=== PATIENT | female | born 1960 | race Caucasian/White ===

== ENCOUNTER → 2016-10-04 | Outpatient (CLI) | payer BC ==
[~2016-10-04] MED LIST: ADVIN25/60 INH; ALBU1AER9 INH; ALBU1NEB10 INH; BRVIN INH; LVQ750 PO; MELO15TA4 PO; MOME50SP5; PRD10 PO; PRLSR20 PO; RANI150T2 PO; SNG10 PO
--- NOTE | 2016-10-05 13:35 | MAMMOGRAPHY REPORT ---
BILATERAL DIGITAL SCREENING MAMMOGRAM TOMOSYNTHESIS WITH CAD: 10/04/2016 TECHNIQUE: Breast tomosynthesis in addition to standard 2D mammography was performed. Current study was also evaluated with a Computer Aided Detection (CAD) system. COMPARISON: Comparison is made to exams dated: 09/17/2015 mammogram, 09/11/2013 mammogram, 09/09/2012 ma mmogram, 09/08/2011 mammogram, 09/05/2010 mammogram, and 09/14/2014 mammogram - [facility]. BREAST COMPOSITION: There are scattered areas of fibroglandular density in both breasts. FINDINGS: No suspicious masses, calcifications, or areas of architectural distortion are noted in e ither breast. There has been no significant interval change compared to prior exams. Focal asymmetr y in the left subareolar breast is stable compared to prior exams dating back to at least 2007. Rig ht superior posterior breast asymmetry is also stable dating back to 2007. IMPRESSION: ACR BI-RADS CATEGORY 2: BENIGN There is no mammographic evidence of malignancy. A 1 year screening mammogram is recommended. The p atient will receive written notification of the results. Approximately 10% of breast cancers are not detected with mammography. A negative mammographic repor t should not delay biopsy if a clinically suggestive mass is present. Jaclyn Vu M.D. /:10/04/2016 16:41:03 Edge Grinder Machine: Anya LOBATO(R)(M), [facility] letter sent: Normal 1/2 BI-RADS Code: ACR BI-RADS Category 2: Benign
== END | disposition home or self-care (01) ==
LOC: C.MAMM 12:16
PROVIDERS: ATTEND Surgery
DX: Z12.31 Encounter for screening mammogram for malignant neoplasm of breast (principal)

== ENCOUNTER → 2017-10-05 | Outpatient (CLI) | payer OTHER ==
[~2017-10-05] MED LIST changes: +MELO-84 PO; -MELO15TA4 PO
--- NOTE | 2017-10-08 07:33 | MAMMOGRAPHY REPORT ---
BILATERAL DIGITAL SCREENING MAMMOGRAM TOMOSYNTHESIS WITH CAD: 10/05/2017 CLINICAL HISTORY: Routine screening. Patient has no complaints. TECHNIQUE: Breast tomosynthesis in addition to standard 2D mammography was performed. Current study was also evaluated with a Computer Aided Detection (CAD) system. COMPARISON: Comparison is made to exams dated: 10/04/2016 mammogram, 09/17/2015 mammogram, 09/14/2014 ma mmogram, 09/11/2013 mammogram, 09/09/2012 mammogram, and 09/08/2011 mammogram - [facility] BREAST COMPOSITION: There are scattered areas of fibroglandular density in both breasts. FINDINGS: No suspicious masses, calcifications, or areas of architectural distortion are noted in ei ther breast. There has been no significant interval change compared to prior exams. IMPRESSION: ACR BI-RADS CATEGORY 1: NEGATIVE There is no mammographic evidence of malignancy. A 1 year screening mammogram is recommended. The pa tient will receive written notification of the results. Approximately 10% of breast cancers are not detected with mammography. A negative mammographic report should not delay biopsy if a clinically suggestive mass is present. Jaclyn Vu M.D. ah/:10/05/2017 16:08:24 Die Set Up Worker: Narcisa Viera M, [facility] letter sent: Normal 1/2 BI-RADS Code: ACR BI-RADS Category 1: Negative
== END | disposition home or self-care (01) ==
LOC: C.MAMM 12:37
PROVIDERS: ATTEND Internal Medicine
DX: Z12.31 Encounter for screening mammogram for malignant neoplasm of breast (principal)

== ENCOUNTER 2023-02-21 22:20 | Observation (INO) ==
[2023-02-21 23:10] LABS: Base Excess VBG -0.8 mEq/L; HCO3 VBG 24 mmol/L; Oxygen Saturation VBG 74.7 %; PCO2 VBG 41 mmHg (38-50); PO2 VBG 44 mmHg; pH VBG 7.38 (7.36-7.41)
[2023-02-21 23:14] LABS: Basophils # (auto) 0.07 K/uL (0-0.2); Basophils % (auto) 0.6 %; Eosinophils # (auto) 0.39 K/uL (0-0.50); Eosinophils % (auto) 3.4 %; Hematocrit (blood only) 41.3 % (37.0-47.0); Hemoglobin 14.4 g/dl (12.0-16.0); Immature Granulocytes # (auto) 0.04 K/uL (0.01-0.20); Immature Granulocytes % (auto) 0.3 %; Lymphocytes # (auto) 1.22 K/uL (1.2-3.4); Lymphocytes % (auto) 10.5 %; Mean Corpuscular Hemoglobin 30.1 pg (25.0-34.0); Mean Corpuscular Hgb Conc 34.9 g/dL (32.0-36.0); Mean Corpuscular Volume 86.2 fL (80.0-100.0); Mean Platelet Volume 9.3 fL (9.4-12.4); Monocytes # (auto) 0.61 K/uL (0.11-0.59); Monocytes % (auto) 5.3 %; Neutrophils # (auto) 9.28 K/uL (1.40-6.50); Neutrophils % (auto) 79.9 %; Platelet Count 278 K/uL (130-400); RDW Coefficient of Variation 12.6 % (11.5-14.5); RDW Standard Deviation 39.5 fL (36.4-46.3); Red Blood Count 4.79 M/uL (4.20-5.40); White Blood Count 11.61 K/ul (4.8-10.8)
[2023-02-21] MEDS ORDERED: ALBUT/IPRATROP 3MG/0.5MG NEB 3 ML VIAL NEB STA (23:19)
[2023-02-21] MEDS ORDERED: ALBUT/IPRATROP 3MG/0.5MG NEB 3 ML VIAL NEB ONE (23:24)
[2023-02-21] MEDS ORDERED: methylPREDNISolone 125 MG/2 ML VIAL IV STA (23:24)
[2023-02-21] MEDS ORDERED: MAGNESIUM SULFATE / D5W 1 GM/100 ML BAG IV STA (23:24)
[2023-02-21 23:33] LABS: Albumin Globulin Ratio 1.5 (0.9-2); Albumin Level 4.5 gm/dl (3.4-5.0); BUN Creatinine Ratio 18.3 (10-20); Bilirubin,Total 0.6 mg/dl (0.2-1.0); Calcium 9.5 mg/dl (8.6-10.3); Creatinine Clr Calc Pharmacy 71.3 ml/min; Est GFR (African American) 75.8 ml/min; Est GFR (Non-African American) 65.4 ml/min; Globulin 3.1 gm/dl (2.5-4.0); Magnesium 2.1 mg/dl (1.7-2.4); Potassium 3.7 mmol/L (3.5-5.1); Total Protein 7.6 gm/dl (6.0-8.3)
[2023-02-21 23:40] LABS: Troponin I High Sensitivity 3.3 pg/ml (0-14)
--- NOTE | 2023-02-21 23:50 | Emergency Department Note ---
Impression & Plan Acute dyspnea, Asthma exacerbation ED Provider Note ED Provider Note NAME: LATASHA NUNEZ AGE:62 SEX: Female : 1960 ARRIVES VIA: Private vehicle INFORMANT: Patient ED PROVIDER(s): Gayatri Sotelo DO CHIEF COMPLAINT: Shortness of breath HPI: This is a 62-year-old female presents emergency room due to increased difficulty breathing and concern for asthma exacerbation. Patient states she has had "a cold" intermittently over the course of the last month. She does deal with seasonal allergies but takes Singulair and Lexie. She states her asthma has been well controlled over the last several years. She states today her breathing seem to worsen and she used her albuterol MDI at home several times and then gave herself a nebulizer treatment between 7 and 730 without any significant improvement and presented for additional evaluation. She states she does feel tight in the chest and is sore with fits of coughing. She denies fevers or chills, nasal congestion, rhinorrhea, nausea, vomiting, diarrhea, or leg swelling. She denies any history of heart problems. PAST MEDICAL HISTORY:See Below PAST SURGICAL HISTORY:See Below FAMILY HISTORY:See Below SOCIAL HISTORY:See Below HOME MEDICATIONS:See Below ALLERGIES:See Below VITALS:See Below PHYSICAL EXAMINATION: GENERAL: alert, uncomfortable appearing, well nourished, no distress, non-toxic EYE EXAM: normal conjunctiva, PERRL and EOM's grossly intact OROPHARYNX: no exudate, no erythema, lips, buccal mucosa, and tongue normal and mucous membranes are moist NECK: supple, no nuchal rigidity, no adenopathy, non-tender LUNGS: Normal chest wall mechanics, diffuse bilateral expiratory wheezes noted, tachypnea, increased work of breathing HEART: no murmurs, S1 normal and S2 normal ABDOMEN: abdomen soft, non-tender, normo-active bowel sounds, no masses, no rebound or guarding. BACK: Back is symmetrical on inspection and there is no deformity, no midline tenderness, no CVA tenderness. SKIN: no rashes, petechiae, orbruising UPPER EXTREMITIES: upper extremities are grossly normal. FROM, nml pulses b/l. LOWER EXTREMITIES: No pitting edema. FROM, nml pulses b/l. NEURO EXAM: Normal sensorium, cranial nerves II-XII grossly intact, normal speech, no facial droop,nogross weakness of arms, no gross weakness of legs. G ross sensation intact. No ataxia. Vital Signs: reviewed and remarkable Differential Diagnosis: pneumonia, bronchitis, Asthma exacerbation, pneumothorax, pulmonary embolism, congestive heart failure, acute coronary syndrome, pericardial effusion, pleural effusion, foreign body, aspiration MEDICAL DECISION MAKING: This is a 62-year-old female with a history of asthma who presents with significant work of breathing and respiratory distress. Patient did try her MDI as well as a nebulizer treatment at home without any improvement. She was markedly dyspneic and uncomfortable appearing on arrival. She was afebrile and vital signs otherwise stable. Labs are drawn and sent, IV established, EKG and chest x-ray performed at bedside and interpreted by me and patient monitored on telemetry. Nursing staff is started a DuoNeb on the patient. I added a continuous nebulizer treatment, IV magnesium, and IV Solu-Medrol. Patient was given gentle IV fluid rehydration additionally. Patient reexamined multiple times and wheezing improved as did work of breathing. Patient still had increased dyspnea with exertion and was noted to be hypoxic with any exertion. Due to concern for persistent symptoms despite extensive treatment here, we discussed additional inpatient evaluation and management. A second continuous nebulizer treatment was also added. Chest x-ray did not reveal any acute findings however given recent URI symptoms over the course of the last month, we did discuss possible atypical presentation of pneumonia. Patient was given IV antibiotics as a precaution. Nasal swab had been negative for viral etiology. At this time I do not suspect occult PE or other cardiac etiology of her symptoms. Consultation(s): 0249: Discussed with Dr. Jaffe, hospitalist team for additional evaluation and management. ER Treatment Provided: See below 0115: Patient reevaluated while on continuous nebulizer treatment. She states she is feeling improved, she does have improved air movement on repeat auscultation although still has wheezes and scattered rhonchi. 0235: Patient still with expiratory wheeze bilaterally although markedly improved compared to prior. Patient noted to still be dyspneic and hypoxic with ambulation. Requires 2 L while at rest to maintain sats in the low 90s. Diagnostics Interpreted By Me: -ECG: Normal sinus at 79, normal axis, normal intervals, no acute ST/T wave changes, baseline artifact noted -Cardiac Monitoring: An order was placed for continuous cardiac monitoring. The monitor shows a rate of 80 with normal sinus rhythm. -Laboratory studies: As stated above and show below. -Imaging studies: X-ray Chest: A single view study of the chest was reviewed and was negative for cardiomegaly, focal infiltrate, effusion, pulmonary edema, or wide mediastinum. Triage Nursing Note Reviewed Prior/Outside Records Reviewed Critical care: Critical care of 41 min performed to assess and manage high likelihood of life- threatening dyspnea and hypoxia, involving labs and imaging performed with assessment to evaluate asthma exacerbation diagnosis] with frequent reassessment. This time includes bedside time, treatment discussions with patient/family/consultants, documentation time and excludes procedure time. Past Med/Surg History Medical History Asthma Asthma Asthma exacerbation Chronic rhinitis Cough DDD (degenerative disc disease) GERD (gastroesophageal reflux disease) Pure hyperglyceridemia Shortness of breath Wheezing Social History Smoking Status: Unknown if ever smoked Feels Safe at Home: Yes Allergies Allergies Allergy/AdvReac Type Severity Reaction Status Date / Time oxycodone AdvReac Intermediate gave her a Verified 02/21/23 23:40 headache Home Meds Home Medications Medication Instructions Recorded Confirmed albuterol sulfate 2.5 mg/3 mL 2.5 mg inhalation Q4H PRN 02/25/19 02/21/23 (0.083 %) solution for nebulization Shortness Of Breath Or Wheezing #2 mL albuterol sulfate 90 mcg/actuation 1 puffs inhalation Q4H #1 ea 02/25/19 02/21/23 breath activated powder inhaler lysine 1,000 mg tablet 500 mg PO DAILY 02/25/19 02/21/23 omega-3 acid ethyl esters 1 gram 1 cap PO DAILY 12/04/19 02/21/23 capsule blue-green algae (bulk) (Spirulina 1 ea miscellaneous DAILY 02/21/23 02/21/23 powder) fluticasone 100 mcg-salmeterol 50 1 inh inhalation HS 02/21/23 02/21/23 mcg/dose blistr powdr for inhalation (Advair Diskus) loratadine 10 mg tablet 10 mg PO DAILY 02/21/23 02/21/23 magnesium oxide 100 mg PO DAILY 02/21/23 02/21/23 topiramate 25 mg tablet 50 mg PO QPM 02/21/23 02/21/23 Results & Data (ED) Vital Signs Vital Signs - 24 hr 02/21/23 22:24 02/21/23 22:21 02/21/23 22:21 Temperature 36.6 C Temperature Source Skin Pulse Rate 85 Pulse Rate from SpO2 Sensor Respiratory Rate 18 Respiratory Effort / Characteristics Labored Blood Pressure 145/87 H Blood Pressure Mean 106 Pulse Oximetry 93 89 L Oxygen Delivery Method Room Air Room Air Oxygen Flow Rate 0 Sepsis Recent Fever Within 48 Hours No Sepsis New/Unexplained Change in Mental Status No Sepsis Action Taken by Nursing No Action Required Oxygen Flow Rate - Titration 2 Pulse Oximetry Post Tiitration 95 02/21/23 22:40 02/21/23 22:52 02/21/23 23:39 Temperature Temperature Source Pulse Rate 82 Pulse Rate from SpO2 Sensor Respiratory Rate 24 Respiratory Effort / Characteristics Spontaneous Blood Pressure Blood Pressure Mean Pulse Oximetry 95 95 Oxygen Delivery Method Nasal Cannula Nasal Cannula Oxygen Flow Rate 2 2 Sepsis Recent Fever Within 48 Hours Sepsis New/Unexplained Change in Mental Status Sepsis Action Taken by Nursing Oxygen Flow Rate - Titration Pulse Oximetry Post Tiitration 02/21/23 22:52 02/21/23 23:00 02/21/23 23:06 Temperature Temperature Source Pulse Rate 88 76 74 Pulse Rate from SpO2 Sensor 85 77 74 Respiratory Rate 25 H 25 H 24 Respiratory Effort / Characteristics Blood Pressure Blood Pressure Mean Pulse Oximetry 92 94 95 Oxygen Delivery Method Oxygen Flow Rate Sepsis Recent Fever Within 48 Hours Sepsis New/Unexplained Change in Mental Status Sepsis Action Taken by Nursing Oxygen Flow Rate - Titration Pulse Oximetry Post Tiitration 02/21/23 23:06 02/21/23 23:10 02/21/23 23:20 Temperature Temperature Source Pulse Rate 71 74 Pulse Rate from SpO2 Sensor 71 74 Respiratory Rate 21 24 Respiratory Effort / Characteristics Blood Pressure 128/83 Blood Pressure Mean 99 Pulse Oximetry 96 96 Oxygen Delivery Method Oxygen Flow Rate Sepsis Recent Fever Within 48 Hours Sepsis New/Unexplained Change in Mental Status Sepsis Action Taken by Nursing Oxygen Flow Rate - Titration Pulse Oximetry Post Tiitration 02/21/23 23:30 02/21/23 23:30 02/21/23 23:40 Temperature Temperature Source Pulse Rate 75 77 Pulse Rate from SpO2 Sensor 75 78 Respiratory Rate 20 19 Respiratory Effort / Characteristics Blood Pressure 142/79 H Blood Pressure Mean 104 Pulse Oximetry 97 96 Oxygen Delivery Method Oxygen Flow Rate Sepsis Recent Fever Within 48 Hours Sepsis New/Unexplained Change in Mental Status Sepsis Action Taken by Nursing Oxygen Flow Rate - Titration Pulse Oximetry Post Tiitration 02/21/23 23:50 02/22/23 00:00 02/22/23 00:00 Temperature Temperature Source Pulse Rate 76 82 Pulse Rate from SpO2 Sensor 77 81 Respiratory Rate 19 18 Respiratory Effort / Characteristics Blood Pressure 131/77 Blood Pressure Mean 98 Pulse Oximetry 96 96 Oxygen Delivery Method Oxygen Flow Rate Sepsis Recent Fever Within 48 Hours Sepsis New/Unexplained Change in Mental Status Sepsis Action Taken by Nursing Oxygen Flow Rate - Titration Pulse Oximetry Post Tiitration 02/22/23 00:10 02/22/23 00:20 02/22/23 00:30 Temperature Temperature Source Pulse Rate 80 81 82 Pulse Rate from SpO2 Sensor 80 80 82 Respiratory Rate 17 17 16 Respiratory Effort / Characteristics Blood Pressure 134/74 Blood Pressure Mean 94 Pulse Oximetry 96 96 96 Oxygen Delivery Method Oxygen Flow Rate Sepsis Recent Fever Within 48 Hours Sepsis New/Unexplained Change in Mental Status Sepsis Action Taken by Nursing Oxygen Flow Rate - Titration Pulse Oximetry Post Tiitration 02/22/23 01:00 02/22/23 01:30 02/22/23 02:00 Temperature Temperature Source Pulse Rate 87 93 H 89 Pulse Rate from SpO2 Sensor 80 93 H 89 Respiratory Rate 16 17 17 Respiratory Effort / Characteristics Blood Pressure 122/72 118/71 109/72 Blood Pressure Mean 88 86 84 Pulse Oximetry 96 95 90 Oxygen Delivery Method Oxygen Flow Rate Sepsis Recent Fever Within 48 Hours Sepsis New/Unexplained Change in Mental Status Sepsis Action Taken by Nursing Oxygen Flow Rate - Titration Pulse Oximetry Post Tiitration 02/22/23 02:29 02/22/23 02:37 02/22/23 02:30 Temperature Temperature Source Pulse Rate 88 91 H Pulse Rate from SpO2 Sensor 92 H Respiratory Rate 20 Respiratory Effort / Characteristics Blood Pressure 137/79 Blood Pressure Mean 98 Pulse Oximetry 88 L 92 Oxygen Delivery Method Room Air Nasal Cannula Oxygen Flow Rate 2 Sepsis Recent Fever Within 48 Hours Sepsis New/Unexplained Change in Mental Status Sepsis Action Taken by Nursing Oxygen Flow Rate - Titration Pulse Oximetry Post Tiitration 02/22/23 03:30 02/22/23 03:00 02/22/23 03:30 Temperature Temperature Source Pulse Rate 82 83 Pulse Rate from SpO2 Sensor 82 84 Respiratory Rate 22 16 18 Respiratory Effort / Characteristics Spontaneous Blood Pressure 120/74 124/72 Blood Pressure Mean 89 89 Pulse Oximetry 93 91 94 Oxygen Delivery Method Nasal Cannula Nasal Cannula Nasal Cannula Oxygen Flow Rate 2 2 2 Sepsis Recent Fever Within 48 Hours Sepsis New/Unexplained Change in Mental Status Sepsis Action Taken by Nursing Oxygen Flow Rate - Titration Pulse Oximetry Post Tiitration Laboratory Data 02/21/23 22:45 02/21/23 22:45 Lab Results 02/21/23 02/21/23 02/21/23 Range/Units 22:45 22:45 22:45 WBC 11.61 H (4.8-10.8) K/ul RBC 4.79 (4.20-5.40) M/uL Hgb 14.4 (12.0-16.0) g/dl Hct 41.3 (37.0-47.0) % MCV 86.2 (80.0-100.0) fL MCH 30.1 (25.0-34.0) pg MCHC 34.9 (32.0-36.0) g/dL RDW Std Deviation 39.5 (36.4-46.3) fL RDW Coeff of Marilynn 12.6 (11.5-14.5) % Plt Count 278 (130-400) K/uL MPV 9.3 L (9.4-12.4) fL Immature Gran % (Auto) 0.3 % Neut % (Auto) 79.9 % Lymph % (Auto) 10.5 % [place] % (Auto) 5.3 % Eos % (Auto) 3.4 % Baso % (Auto) 0.6 % Neut # (Auto) 9.28 H (1.40-6.50) K/uL Lymph # (Auto) 1.22 (1.2-3.4) K/uL [place] # (Auto) 0.61 H (0.11-0.59) K/uL Eos # (Auto) 0.39 (0-0.50) K/uL Baso # (Auto) 0.07 (0-0.2) K/uL Immature Gran # (Auto) 0.04 (0.01-0.20) K/uL VBG pH (7.36-7.41) VBG pCO2 (38-50) mmHg VBG pO2 mmHg VBG HCO3 mmol/L VBG O2 Saturation % VBG Base Excess mEq/L Sodium 139 (136-145) mmol/L Potassium 3.7 (3.5-5.1) mmol/L Chloride 107 (98-107) mmol/L Carbon Dioxide 24 (21-32) mmol/L Anion Gap 8 (3-11) BUN 17 (6-23) mg/dl Creatinine 0.93 (0.6-1.2) mg/dl Est Cr Clr Drug Dosing 71.3 ml/min Est GFR ( Amer) 75.8 ml/min Est GFR (Non-Af Amer) 65.4 ml/min BUN/Creatinine Ratio 18.3 (10-20) Glucose 124 H (70-99(Fasting)) mg/dl Calcium 9.5 (8.6-10.3) mg/dl Magnesium 2.1 (1.7-2.4) mg/dl Total Bilirubin 0.6 (0.2-1.0) mg/dl AST 13 (13-39) U/L ALT 12 (7-52) U/L Alkaline Phosphatase 90 (34-104) U/L Troponin I High Sens 3.3 (0-14) pg/ml B-Natriuretic Peptide 11 (0-100) pg/ml Total Protein 7.6 (6.0-8.3) gm/dl Albumin 4.5 (3.4-5.0) gm/dl Globulin 3.1 (2.5-4.0) gm/dl Albumin/Globulin Ratio 1.5 (0.9-2) Procalcitonin (0-0.5) ng/ml Adenovirus (PCR) (NotDetected) B. pertussis DNA (PCR) (NotDetected) B.parapertussis DNA PCR (NotDetected) C. pneumoniae DNA (PCR) (NotDetected) Coronavirus OC43 (PCR) (NotDetected) Coronavirus HKU1 (PCR) (NotDetected) Coronavirus 229E (PCR) (NotDetected) SARS-CoV-2 (PCR) (NotDetected) Coronavirus NL63 (PCR) (NotDetected) Human Metapneumovir PCR (NotDetected) Influenza Type A (PCR) (NotDetected) Influenza Type B (PCR) (NotDetected) M. pneumoniae (PCR) (NotDetected) Parainfluenza 1 (PCR) (NotDetected) Parainfluenza 2 (PCR) (NotDetected) Parainfluenza 3 (PCR) (NotDetected) Parainfluenza 4 (PCR) (NotDetected) RSV (PCR) (NotDetected) Entero/Rhino (PCR) (NotDetected) 02/21/23 02/21/23 02/21/23 Range/Units 22:45 22:45 23:04 WBC (4.8-10.8) K/ul RBC (4.20-5.40) M/uL Hgb (12.0-16.0) g/dl Hct (37.0-47.0) % MCV (80.0-100.0) fL MCH (25.0-34.0) pg MCHC (32.0-36.0) g/dL RDW Std Deviation (36.4-46.3) fL RDW Coeff of Marilynn (11.5-14.5) % Plt Count (130-400) K/uL MPV (9.4-12.4) fL Immature Gran % (Auto) % Neut % (Auto) % Lymph % (Auto) % [place] % (Auto) % Eos % (Auto) % Baso % (Auto) % Neut # (Auto) (1.40-6.50) K/uL Lymph # (Auto) (1.2-3.4) K/uL [place] # (Auto) (0.11-0.59) K/uL Eos # (Auto) (0-0.50) K/uL Baso # (Auto) (0-0.2) K/uL Immature Gran # (Auto) (0.01-0.20) K/uL VBG pH 7.38 (7.36-7.41) VBG pCO2 41 (38-50) mmHg VBG pO2 44 mmHg VBG HCO3 24 mmol/L VBG O2 Saturation 74.7 % VBG Base Excess -0.8 mEq/L Sodium (136-145) mmol/L Potassium (3.5-5.1) mmol/L Chloride (98-107) mmol/L Carbon Dioxide (21-32) mmol/L Anion Gap (3-11) BUN (6-23) mg/dl Creatinine (0.6-1.2) mg/dl Est Cr Clr Drug Dosing ml/min Est GFR ( Amer) ml/min Est GFR (Non-Af Amer) ml/min BUN/Creatinine Ratio (10-20) Glucose (70-99(Fasting)) mg/dl Calcium (8.6-10.3) mg/dl Magnesium (1.7-2.4) mg/dl Total Bilirubin (0.2-1.0) mg/dl AST (13-39) U/L ALT (7-52) U/L Alkaline Phosphatase (34-104) U/L Troponin I High Sens (0-14) pg/ml B-Natriuretic Peptide (0-100) pg/ml Total Protein (6.0-8.3) gm/dl Albumin (3.4-5.0) gm/dl Globulin (2.5-4.0) gm/dl Albumin/Globulin Ratio (0.9-2) Procalcitonin < 0.05 (0-0.5) ng/ml Adenovirus (PCR) Not Detected (NotDetected) B. pertussis DNA (PCR) Not Detected (NotDetected) B.parapertussis DNA PCR Not Detected (NotDetected) C. pneumoniae DNA (PCR) Not Detected (NotDetected) Coronavirus OC43 (PCR) Not Detected (NotDetected) Coronavirus HKU1 (PCR) Not Detected (NotDetected) Coronavirus 229E (PCR) Not Detected (NotDetected) SARS-CoV-2 (PCR) Not Detected (NotDetected) Coronavirus NL63 (PCR) Not Detected (NotDetected) Human Metapneumovir PCR Not Detected (NotDetected) Influenza Type A (PCR) Not Detected (NotDetected) Influenza Type B (PCR) Not Detected (NotDetected) M. pneumoniae (PCR) Not Detected (NotDetected) Parainfluenza 1 (PCR) Not Detected (NotDetected) Parainfluenza 2 (PCR) Not Detected (NotDetected) Parainfluenza 3 (PCR) Not Detected (NotDetected) Parainfluenza 4 (PCR) Not Detected (NotDetected) RSV (PCR) Not Detected (NotDetected) Entero/Rhino (PCR) Not Detected (NotDetected) Administered Medications Albuterol (Albuterol Hfa 8 Gm Inhaler) 1 puffs INH Q4R ROSLYN Stop: 03/24/23 06:59 Last Admin: 02/22/23 06:49 Dose: Not Given Documented By: TWYLA Albuterol (Albut/Ipratrop 3mg/0.5mg Neb 3 Ml Vial) 3 ml NEB QIDR ROSLYN; Protocol Stop: 03/24/23 06:59 Last Admin: 02/22/23 06:48 Dose: Not Given Documented By: TWYLA Enoxaparin Sodium (Enoxaparin Inj 40 Mg/0.4 Ml Syr) 40 mg SQ Q24H ROSLYN Stop: 03/24/23 05:59 Last Admin: 02/22/23 06:09 Dose: 40 mg Documented By: SHAUN Discontinued Medications Albuterol (Albut/Ipratrop 3mg/0.5mg Neb 3 Ml Vial) 3 ml NEB NOW STA; Protocol Stop: 02/21/23 23:20 Last Admin: 02/21/23 23:26 Dose: 3 ml Documented By: BECKA Albuterol (Albut/Ipratrop 3mg/0.5mg Neb 3 Ml Vial) 12 ml NEB ONE ONE; Protocol Stop: 02/21/23 23:25 Last Admin: 02/21/23 23:38 Dose: 12 ml Documented By: ALVINA Albuterol (Albut/Ipratrop 3mg/0.5mg Neb 3 Ml Vial) 12 ml NEB ONE ONE; Protocol Stop: 02/22/23 02:41 Last Admin: 02/22/23 03:24 Dose: 12 ml Documented By: ALVINA Azithromycin (Azithromycin 250 Mg Tab) 500 mg PO NOW ONE Stop: 02/22/23 02:44 Last Admin: 02/22/23 03:10 Dose: 500 mg Documented By: SHAUN Magnesium Sulfate/Dextrose (Magnesium Sulfate / D5w) 1 gm in 100 mls @ 100 mls/hr IV NOW STA Stop: 02/22/23 00:23 Last Infusion: 02/22/23 00:37 Dose: 0 mls/hr Documented By: Admin: 02/21/23 23:38 Dose: 100 mls/hr Documented By: BECKA Acetaminophen (Ofirmev) 1,000 mg in 100 mls @ 400 mls/hr IV NOW STA Stop: 02/22/23 02:01 Last Infusion: 02/22/23 02:20 Dose: 0 mls/hr Documented By: Admin: 02/22/23 02:02 Dose: 400 mls/hr Documented By: SHAUN Ceftriaxone Sodium 1,000 mg/ (Dextrose) 50 mls @ 100 mls/hr IV NOW STA Stop: 02/22/23 03:12 Last Infusion: 02/22/23 04:04 Dose: 0 mls/hr Documented By: Admin: 02/22/23 03:10 Dose: 100 mls/hr Documented By: SHAUN Methylprednisolone (Methylprednisolone 125 Mg/2 Ml Vial) 60 mg IV NOW STA Stop: 02/21/23 23:25 Last Admin: 02/21/23 23:31 Dose: 60 mg Documented By: BECKA Imaging Data Radiologist's Impression: Chest X-Ray 02/21/23 22:40 XR chest 1V portable CLINICAL HISTORY: Dyspnea TECHNIQUE: Single frontal radiograph of the chest was obtained. Comparison: Comparison is made to chest radiograph 09/09/2014 FINDINGS: No lines and tubes are seen. The cardiomediastinal silhouette is normal. The lungs are clear. No evidence of pleural effusion or pneumothorax. IMPRESSION: No acute chest disease. ACT 112: Negative or not required by law. Electronically signed by: Alvin Villegas M.D. 02/22/2023 8:07 AM Discharge Plan Visit Data Chief Complaint: Respiratory Problems Stated Complaint: SEVERE SOB,COLD,COUGH,BACK PAIN,WHEEZING ED Provider: Gayatri Sotelo Discharge Problem: Acute dyspnea, Asthma exacerbation Discharge Instructions Interventions: ED Discharge Assessment Last Done: 02/22/23 05:22
[2023-02-22] LABS: Adenovirus PCR Not Detected (NotDetected); Bordetella parapertussis PCR Not Detected (NotDetected); Bordetella pertussis PCR Not Detected (NotDetected); Chlamydia pneumoniae PCR Not Detected (NotDetected); Coronavirus 229E PCR Not Detected (NotDetected); Coronavirus CoV-2 (COVID19)PCR Not Detected (NotDetected); Coronavirus HKU1 PCR Not Detected (NotDetected); Coronavirus NL63 PCR Not Detected (NotDetected); Coronavirus OC43PCR Not Detected (NotDetected); Human Metapneumovirus PCR Not Detected (NotDetected); Influenza A PCR Not Detected (NotDetected); Influenza B PCR Not Detected (NotDetected); Mycoplasma pneumoniae PCR Not Detected (NotDetected); Parainfluenza Virus 1 PCR Not Detected (NotDetected); Parainfluenza Virus 2 PCR Not Detected (NotDetected); Parainfluenza Virus 3 PCR Not Detected (NotDetected); Parainfluenza Virus 4 PCR Not Detected (NotDetected); Respiratory Syncytial VirusPCR Not Detected (NotDetected); Rhinovirus/Enterovirus PCR Not Detected (NotDetected)
[2023-02-22] MEDS ORDERED: ACETAMINOPHEN 1,000 MG/100 ML VIAL IV STA (01:47)
[2023-02-22] MEDS ORDERED: ALBUT/IPRATROP 3MG/0.5MG NEB 3 ML VIAL NEB ONE (02:40)
[2023-02-22] MEDS ORDERED: AZITHROMYCIN 250 MG TAB PO ONE (02:43)
[2023-02-22] MEDS ORDERED: cefTRIAXone SODIUM 1,000 MG in DEXTROSE 5% AD-VAN 50 ML IV STA (02:43)
--- NOTE | 2023-02-22 04:08 | History & Physical Report ---
Date of Service February 22, 2023 Assessment & Plan (1) Asthma exacerbation: Plan: 62-year-old female presents with asthma exacerbation Asthma exacerbation Received IV Solu-Medrol and nebs in the ER and Rocephin and azithromycin We will continue with IV Solu-Medrol, nebs [id number] and as needed, and antibiotics Monitor the response is worried probably Topamax causing her symptoms because her current symptoms started after starting the drug about a month ago. Per up-to-date Topamax can cause 13 to 16% of upper respiratory infections. Will hold Topamax for now DVT prophylax Lovenox Disposition med/telemetry Full code History of Present Illness Chief Complaint: Asthma exacerbation Primary Care Provider: Tiara Ayon MD 62-year-old female past med significant for high triglycerides, asthma mild persistent, normal allergic rhinitis, GERD, constipation, chronic back pain presents with shortness of breath and cough. Patient states last 1 month she had cold symptoms on and off with cough bringing whitish-yellow phlegm. Last 2 days symptoms got worse and she was getting short of breath. Denies any fevers. No chest pains. In the ER upon ambulation she is requiring oxygen. Currently denies any headache. Initially had sore throat. No nausea. Appetite is okay. No dysphagia. No abdominal pain. Constipated. No blood in the stools or black stools. Normal bladder movements. Patient's states since she started the new medications seems to be Topamax about a month ago she started to develop this cold symptoms and is concerned whether current symptoms are side effects from the drug. Past medical history as mentioned above. Past surgical history colonoscopy, EGD with biopsy, ligation of oviducts, microdiscectomy at L5-S1. Family history father has asthma, bladder and prostate cancer, skin cancer. Mother had breast cancer at age 63, diabetes. Daughter has allergies. Sister has recurrent metastatic breast cancer at 61, sister cervical cancer, sister had breast cancer at age 45 BRCA negative. 2 sisters with COPD. Aunt has breast cancer. Social history . No smoking. Alcohol rarely. No drug use Allergies Allergy/AdvReac Type Severity Reaction Status Date / Time oxycodone AdvReac Intermediate gave her a Verified 02/21/23 23:40 headache Home Medications Medication Instructions Recorded Confirmed Type albuterol sulfate 2.5 mg/3 mL 2.5 mg inhalation Q4H PRN 02/25/19 02/21/23 History (0.083 %) solution for nebulization Shortness Of Breath Or Wheezing #2 mL albuterol sulfate 90 mcg/actuation 1 puffs inhalation Q4H #1 ea 02/25/19 02/21/23 History breath activated powder inhaler lysine 1,000 mg tablet 500 mg PO DAILY 02/25/19 02/21/23 History omega-3 acid ethyl esters 1 gram 1 cap PO DAILY 12/04/19 02/21/23 History capsule blue-green algae (bulk) (Spirulina 1 ea miscellaneous DAILY 02/21/23 02/21/23 History powder) fluticasone 100 mcg-salmeterol 50 1 inh inhalation HS 02/21/23 02/21/23 History mcg/dose blistr powdr for inhalation (Advair Diskus) loratadine 10 mg tablet 10 mg PO DAILY 02/21/23 02/21/23 History magnesium oxide 100 mg PO DAILY 02/21/23 02/21/23 History topiramate 25 mg tablet 50 mg PO QPM 02/21/23 02/21/23 History Past Med/Surg History Medical History Asthma Asthma Asthma exacerbation Chronic rhinitis Cough DDD (degenerative disc disease) GERD (gastroesophageal reflux disease) Pure hyperglyceridemia Shortness of breath Wheezing Social History Smoking Status: Unknown if ever smoked Feels Safe at Home: Yes Review of Systems Review of Systems: All systems reviewed & are unremarkable except as noted in Subjective Physical Exam Physical Exam: General- Not in distress Head- atraumatic Eyes- PERRL. ENT- oropharynx clear Neck- supple, no JVD. Lungs- clear to auscultation , mild occasional wheezing Heart- regular rhythm; no murmur, no gallop. Abdomen- normal bowel sounds, soft, nontender, no distension. Extremities- no pretibial edema, no erythema seen. Neuro- alert, oriented x 3; PERRL,; no facial palsy; no dysarthria; non focal. Skin- warm & dry Results & Data Results & Data Vital Signs (Past 12 Hours) Vital Signs Temp Pulse Resp BP Pulse Ox O2 Del Method O2 Flow Rate 02/22/23 03:30 83 18 124/72 94 Nasal Cannula 2 08/17/23 03:00 82 16 120/74 91 Nasal Cannula 2 02/22/23 03:30 22 93 Nasal Cannula 2 02/22/23 02:30 91 H 20 137/79 92 Nasal Cannula 2 02/22/23 02:37 88 02/22/23 02:29 88 L Room Air 02/22/23 02:00 89 17 109/72 90 02/22/23 01:30 93 H 17 118/71 95 02/22/23 01:00 87 16 122/72 96 02/22/23 00:30 82 16 134/74 96 02/22/23 00:20 81 17 96 02/22/23 00:10 80 17 96 02/22/23 00:00 82 18 96 02/22/23 00:00 131/77 02/21/23 23:50 76 19 96 02/21/23 23:40 77 19 96 02/21/23 23:30 75 20 97 02/21/23 23:30 142/79 H 02/21/23 23:20 74 24 96 02/21/23 23:10 71 21 96 02/21/23 23:06 128/83 02/21/23 23:06 74 24 95 02/21/23 23:00 76 25 H 94 02/21/23 22:52 88 25 H 92 02/21/23 23:39 24 95 Nasal Cannula 2 02/21/23 22:52 82 02/21/23 22:40 95 Nasal Cannula 2 02/21/23 22:21 89 L Room Air 0 02/21/23 22:24 36.6 C 85 18 145/87 H 93 Room Air Diagnostic Findings Laboratory Results WBC 11.61 K/ul (4.8-10.8) H 02/21/23 22:45 RBC 4.79 M/uL (4.20-5.40) 02/21/23 22:45 Hgb 14.4 g/dl (12.0-16.0) 02/21/23 22:45 Hct 41.3 % (37.0-47.0) 02/21/23 22:45 MCV 86.2 fL (80.0-100.0) 02/21/23 22:45 MCH 30.1 pg (25.0-34.0) 02/21/23 22:45 MCHC 34.9 g/dL (32.0-36.0) 02/21/23 22:45 RDW Std Deviation 39.5 fL (36.4-46.3) 02/21/23 22:45 RDW Coeff of Marilynn 12.6 % (11.5-14.5) 02/21/23 22:45 Plt Count 278 K/uL (130-400) 02/21/23 22:45 MPV 9.3 fL (9.4-12.4) L 02/21/23 22:45 Immature Gran % (Auto) 0.3 % 02/21/23 22:45 Neut % (Auto) 79.9 % 02/21/23 22:45 Lymph % (Auto) 10.5 % 02/21/23 22:45 Gladwin % (Auto) 5.3 % 02/21/23 22:45 Eos % (Auto) 3.4 % 02/21/23 22:45 Baso % (Auto) 0.6 % 02/21/23 22:45 Neut # (Auto) 9.28 K/uL (1.40-6.50) H 02/21/23 22:45 Lymph # (Auto) 1.22 K/uL (1.2-3.4) 02/21/23 22:45 Gladwin # (Auto) 0.61 K/uL (0.11-0.59) H 02/21/23 22:45 Eos # (Auto) 0.39 K/uL (0-0.50) 02/21/23 22:45 Baso # (Auto) 0.07 K/uL (0-0.2) 02/21/23 22:45 Immature Gran # (Auto) 0.04 K/uL (0.01-0.20) 02/21/23 22:45 VBG pH 7.38 (7.36-7.41) 02/21/23 22:45 VBG pCO2 41 mmHg (38-50) 02/21/23 22:45 VBG pO2 44 mmHg 02/21/23 22:45 VBG HCO3 24 mmol/L 02/21/23 22:45 VBG O2 Saturation 74.7 % 02/21/23 22:45 VBG Base Excess -0.8 mEq/L 02/21/23 22:45 Sodium 139 mmol/L (136-145) 02/21/23 22:45 Potassium 3.7 mmol/L (3.5-5.1) 02/21/23 22:45 Chloride 107 mmol/L (98-107) 02/21/23 22:45 Carbon Dioxide 24 mmol/L (21-32) 02/21/23 22:45 Anion Gap 8 (3-11) 02/21/23 22:45 BUN 17 mg/dl (6-23) 02/21/23 22:45 Creatinine 0.93 mg/dl (0.6-1.2) 02/21/23 22:45 Est Cr Clr Drug Dosing 71.3 ml/min 02/21/23 22:45 Est GFR ( Amer) 75.8 ml/min 02/21/23 22:45 Est GFR (Non-Af Amer) 65.4 ml/min 02/21/23 22:45 BUN/Creatinine Ratio 18.3 (10-20) 02/21/23 22:45 Glucose 124 mg/dl (70-99(Fasting)) H 02/21/23 22:45 Calcium 9.5 mg/dl (8.6-10.3) 02/21/23 22:45 Magnesium 2.1 mg/dl (1.7-2.4) 02/21/23 22:45 Total Bilirubin 0.6 mg/dl (0.2-1.0) 02/21/23 22:45 AST 13 U/L (13-39) 02/21/23 22:45 ALT 12 U/L (7-52) 02/21/23 22:45 Alkaline Phosphatase 90 U/L (34-104) 02/21/23 22:45 Troponin I High Sens 3.3 pg/ml (0-14) 02/21/23 22:45 B-Natriuretic Peptide 11 pg/ml (0-100) 02/21/23 22:45 Total Protein 7.6 gm/dl (6.0-8.3) 02/21/23 22:45 Albumin 4.5 gm/dl (3.4-5.0) 02/21/23 22:45 Globulin 3.1 gm/dl (2.5-4.0) 02/21/23 22:45 Albumin/Globulin Ratio 1.5 (0.9-2) 02/21/23 22:45 Procalcitonin < 0.05 ng/ml (0-0.5) 02/21/23 22:45 Adenovirus (PCR) Not Detected (NotDetected) 02/21/23 23:04 B. pertussis DNA (PCR) Not Detected (NotDetected) 02/21/23 23:04 B.parapertussis DNA PCR Not Detected (NotDetected) 02/21/23 23:04 C. pneumoniae DNA (PCR) Not Detected (NotDetected) 02/21/23 23:04 Coronavirus OC43 (PCR) Not Detected (NotDetected) 02/21/23 23:04 Coronavirus HKU1 (PCR) Not Detected (NotDetected) 02/21/23 23:04 Coronavirus 229E (PCR) Not Detected (NotDetected) 02/21/23 23:04 SARS-CoV-2 (PCR) Not Detected (NotDetected) 02/21/23 23:04 Coronavirus NL63 (PCR) Not Detected (NotDetected) 02/21/23 23:04 Human Metapneumovir PCR Not Detected (NotDetected) 02/21/23 23:04 Influenza Type A (PCR) Not Detected (NotDetected) 02/21/23 23:04 Influenza Type B (PCR) Not Detected (NotDetected) 02/21/23 23:04 M. pneumoniae (PCR) Not Detected (NotDetected) 02/21/23 23:04 Parainfluenza 1 (PCR) Not Detected (NotDetected) 02/21/23 23:04 Parainfluenza 2 (PCR) Not Detected (NotDetected) 02/21/23 23:04 Parainfluenza 3 (PCR) Not Detected (NotDetected) 02/21/23 23:04 Parainfluenza 4 (PCR) Not Detected (NotDetected) 02/21/23 23:04 RSV (PCR) Not Detected (NotDetected) 02/21/23 23:04 Entero/Rhino (PCR) Not Detected (NotDetected) 02/21/23 23:04 ECG Additional Comments: ECG normal sinus rhythm at rate 79. Septal infarct age undetermined. No acute ST changes seen Code Status & VTE Plan VTE Prophylaxis Plan VTE Prophylaxis will be ordered: Yes
[2023-02-22] MEDS ORDERED: POLYETHYLENE (MIRALAX) 17 GM PACK PO PRN (05:22)
[2023-02-22] MEDS ORDERED: ALBUTEROL 0.083% NEBU SOLN 3 ML VIAL INH PRN (05:22)
[2023-02-22] MEDS ORDERED: ACETAMINOPHEN 325 MG TAB PO PRN (05:22)
[2023-02-22] MEDS ORDERED: NITROGLYCERIN SL 0.4 MG/TAB TAB SL PRN (05:22)
[2023-02-22] MEDS: ENOXAPARIN INJ 40 MG/0.4 ML SYR SQ SCH (06:09)
[2023-02-22] MEDS: ALBUT/IPRATROP 3MG/0.5MG NEB 3 ML VIAL NEB SCH ×4 (06:48→19:26)
[2023-02-22] MEDS: ALBUTEROL HFA 8 GM INHALER INH SCH ×5 (06:49→22:00)
[2023-02-22 08:00] LABS: Hematocrit (blood only) 39.3 % (37.0-47.0); Hemoglobin 13.5 g/dl (12.0-16.0); Mean Corpuscular Hemoglobin 29.6 pg (25.0-34.0); Mean Corpuscular Hgb Conc 34.4 g/dL (32.0-36.0); Mean Corpuscular Volume 86.2 fL (80.0-100.0); Mean Platelet Volume 9.6 fL (9.4-12.4); Platelet Count 237 K/uL (130-400); RDW Coefficient of Variation 12.8 % (11.5-14.5); RDW Standard Deviation 40.1 fL (36.4-46.3); Red Blood Count 4.56 M/uL (4.20-5.40); White Blood Count 8.35 K/ul (4.8-10.8)
[2023-02-22 08:03] LABS: BUN Creatinine Ratio 17.6 (10-20); Calcium 9.3 mg/dl (8.6-10.3); Creatinine Clr Calc Pharmacy 72.9 ml/min; Est GFR (African American) 77.8 ml/min; Est GFR (Non-African American) 67.1 ml/min; Potassium 3.5 mmol/L (3.5-5.1)
--- NOTE | 2023-02-22 08:08 | XRay Report ---
XR chest 1V portable CLINICAL HISTORY: Dyspnea TECHNIQUE: Single frontal radiograph of the chest was obtained. Comparison: Comparison is made to chest radiograph 09/09/2014 FINDINGS: No lines and tubes are seen. The cardiomediastinal silhouette is normal. The lungs are clear. No evid ence of pleural effusion or pneumothorax. IMPRESSION: No acute chest disease. ACT 112: Negative or not required by law. Electronically signed by: Alvin Villegas M.D. 02/22/2023 8:07 AM
[2023-02-22 08:24] LABS: Basophils # (auto) 0.01 K/uL (0-0.2); Basophils % (auto) 0.1 %; Immature Granulocytes # (auto) 0.04 K/uL (0.01-0.20); Immature Granulocytes % (auto) 0.5 %; Lymphocytes # (auto) 0.28 K/uL (1.2-3.4); Lymphocytes % (auto) 3.4 %; Monocytes # (auto) 0.08 K/uL (0.11-0.59); Neutrophils # (auto) 7.94 K/uL (1.40-6.50)
[2023-02-22] MEDS ORDERED: FLUTICASONE/VILANTEROL 100/25MCG 14 PUFFS/INHALER INH SCH (09:00)
[2023-02-22] MEDS: LORATADINE 10 MG TAB PO SCH (09:47)
[2023-02-22] MEDS: MAGNESIUM OXIDE 400 MG TAB PO SCH (09:47)
[2023-02-22] MEDS: methylPREDNISolone 40 MG in SYRINGE 0 ML IV SCH ×2 (09:47→21:04)
--- NOTE | 2023-02-22 15:22 | Hospitalist Progress Note ---
Date of Service February 22, 2023 Assessment & Plan (1) Asthma exacerbation: Plan: 62-year-old female presents with asthma exacerbation Asthma exacerbation Received IV Solu-Medrol and nebs in the ER and Rocephin and azithromycin We will continue with IV Solu-Medrol, nebs [id number] and as needed, and antibiotics Monitor the response, wean down steroid. is worried probably Topamax causing her symptoms because her current symptoms started after starting the drug about a month ago. Per up-to-date Topamax can cause 13 to 16% of upper respiratory infections. Will hold Topamax for now, patient has been made aware. DVT prophylax Lovenox Disposition med/telemetry Full code Admission and Anticipated Discharge Date Admission Date: February 22, 2023 Subjective Patient seen and examined at bedside, sitting up in chair, on 2 L oxygen via nasal cannula. Patient does not use oxygen at home. Patient reports using only Advair at home and reported having not to use any rescue inhaler. She denies any fever/chills/runny nose. She reports feeling better. Reports eating okay and moving bowels okay. Physical Exam Physical Exam: GENERAL: Alert and oriented x3. NAD, on 2l nc o2. HEENT: No pallor, no icterus. Pupils equal, round and reactive to light. Oral mucosa moist. NECK: No JVD, no neck masses. HEART: S1 and S2 heard. Regular rate and rhythm. No murmur, no gallop. RESPIRATORY SYSTEM: Normal AP diameter. No accessory muscle use. b/l wheezing, no crackles. ABDOMEN: Soft, bowel sounds present, nontender, no distention. CENTRAL NERVOUS SYSTEM: No facial droop. Speech is clear. Obeys simple commands. Moves extremities. EXTREMITIES: No edema, no erythema seen. Results & Data Results & Data Vital Signs (Past 12 Hours) Vital Signs Pulse Pulse Resp BP BP Pulse Ox O2 Del Method 02/22/23 14:57 79 17 95 Nasal Cannula 02/22/23 10:53 88 16 95 Nasal Cannula 02/22/23 10:26 86 20 116/72 95 Nasal Cannula 02/22/23 07:15 90 02/22/23 06:29 98 H 23 116/67 96 Nasal Cannula 02/22/23 06:00 100 H 20 121/68 93 Nasal Cannula 02/22/23 05:30 102 H 20 122/70 93 Nasal Cannula 02/22/23 05:00 104 H 20 118/69 91 Nasal Cannula 02/22/23 04:30 98 H 16 127/78 96 Nasal Cannula 02/22/23 04:00 91 H 18 117/64 96 Nasal Cannula 02/22/23 03:30 83 18 124/72 94 Nasal Cannula 02/22/23 03:30 22 93 Nasal Cannula O2 Flow Rate 02/22/23 14:57 1 02/22/23 10:53 2 02/22/23 10:26 2 02/22/23 07:15 02/22/23 06:29 2 02/22/23 06:00 2 02/22/23 05:30 2 02/22/23 05:00 2 02/22/23 04:30 2 02/22/23 04:00 2 02/22/23 03:30 2 02/22/23 03:30 2
--- NOTE | 2023-02-22 15:44 | Electrocardiogram Report ---
Test Reason : Blood Pressure : / mmHG Vent. Rate : 079 BPM Atrial Rate : 079 BPM P-R Int : 118 ms QRS Dur : 072 ms QT Int : 350 ms P-R-T Axes : 049 010 -08 degrees QTc Int : 401 ms Normal sinus rhythm Low voltage QRS Septal infarct , age undetermined Abnormal ECG When compared with ECG of 09-SEP-2014 17:18, Questionable change in QRS duration Septal infarct is now Present Confirmed by Homar Barrera ([id number]) on 02/22/2023 3:43:33 PM Referred By: REFERRED SELF Confirmed By:Homar Barrera
[2023-02-23] MEDS ORDERED: cefTRIAXone SODIUM 2,000 MG in DEXTROSE 5% 50 ML IV SCH
[2023-02-23] MEDS ORDERED: FLUTICASONE/VILANTEROL 200/25MCG 14 PUFFS/INHALER INH STA (00:56)
[2023-02-23] MEDS ORDERED: FLUTICASONE/VILANTEROL 100/25MCG 14 PUFFS/INHALER INH STA (01:08)
[2023-02-23] MEDS: ENOXAPARIN INJ 40 MG/0.4 ML SYR SQ SCH (05:59)
[2023-02-23] MEDS: AZITHROMYCIN 250 MG TAB PO SCH (06:00)
[2023-02-23] MEDS: ALBUT/IPRATROP 3MG/0.5MG NEB 3 ML VIAL NEB SCH ×4 (06:55→19:10)
[2023-02-23 08:13] LABS: Hemoglobin 13.8 g/dl (12.0-16.0); Mean Corpuscular Hemoglobin 30.4 pg (25.0-34.0); Mean Corpuscular Hgb Conc 34.5 g/dL (32.0-36.0); Mean Corpuscular Volume 88.1 fL (80.0-100.0); Mean Platelet Volume 9.7 fL (9.4-12.4); Platelet Count 269 K/uL (130-400); RDW Standard Deviation 41.6 fL (36.4-46.3); Red Blood Count 4.54 M/uL (4.20-5.40); White Blood Count 15.49 K/ul (4.8-10.8)
[2023-02-23 08:14] LABS: Calcium 9.6 mg/dl (8.6-10.3); Magnesium 2.2 mg/dl (1.7-2.4); Potassium 4.2 mmol/L (3.5-5.1)
[2023-02-23 08:15] LABS: BUN Creatinine Ratio 25.7 (10-20); Creatinine Clr Calc Pharmacy 89.6 ml/min; Est GFR (African American) 99.9 ml/min; Est GFR (Non-African American) 86.2 ml/min; Phosphorus 4.3 mg/dl (2.5-4.9)
[2023-02-23] MEDS: MAGNESIUM OXIDE 400 MG TAB PO SCH (09:13)
[2023-02-23] MEDS: methylPREDNISolone 40 MG in SYRINGE 0 ML IV SCH (09:13)
[2023-02-23] MEDS: LORATADINE 10 MG TAB PO SCH (09:13)
[2023-02-23 14:54] LABS: Appearance Urine Clear (Clear); Bilirubin Urine Negative (Negative); Blood Urine Negative (Negative); Color Urine Yellow; Glucose Urine UA Negative (Negative); Ketones Urine Negative (Negative); Leukocyte Esterase Urine Negative (Negative); Nitrite Urine Negative (Negative); Protein Urine Negative (Negative); Specific Gravity Urine 1.008 (1.000-1.030); Urobilinogen Urine Negative (Negative)
--- NOTE | 2023-02-23 15:23 | Hospitalist Progress Note ---
Date of Service February 23, 2023 Assessment & Plan (1) Asthma exacerbation: Plan: 62yoF admitted with an asthma exacerbation. Asthma exacerbation Received IV Solu-Medrol and nebs in the ER as well as Rocephin and azithromycin Chest XRAY with no acute disease Was on IV Solu-Medrol, transitioned to PO prednisone today. Continue azithromycin, discontinue rocephin Nebs [id number] and as needed, oxygen supplementation prn Discontinue topamax as a possible cause. Per up-to-date Topamax can cause 13 to 16% of upper respiratory infections. Diet: HH DVT prophylaxis: Lovenox Disposition med/telemetry Full code Admission and Anticipated Discharge Date Admission Date: February 22, 2023 Subjective Pt seen this AM. States she feels better but still feels like something is in her throat or chest. Chest feels a little tight. States she previously followed with Pulmonology about ten years ago, Dr. Walker. Review of Systems Review of Systems: All systems reviewed & are unremarkable except as noted in Subjective Physical Exam Physical Exam: General: Alert, oriented. No acute distress Skin: No noted rashes or bruises Psych: Appropriate mood and affect Neuro: No gross deficits HEENT: NC/AT CV: RRR, Normal s1, s2. No murmurs appreciated Resp: Decreased air movement bilaterally, no increased effort of breathing. Abdomen: Soft, nontender, nondistended. No guarding. No organomegaly appreciated. Extremities: No edema in lower extremities bilaterally. Results & Data Results & Data Vital Signs (Past 12 Hours) Vital Signs Temp Pulse Pulse Resp BP Pulse Ox O2 Del Method 02/23/23 14:16 78 16 90 Room Air 02/23/23 11:27 36.5 C 83 20 120/71 95 Room Air 02/23/23 10:22 72 16 94 Room Air 02/23/23 07:47 36.6 C 71 20 117/66 92 Room Air 02/23/23 07:32 Nasal Cannula 02/23/23 07:12 55 L 02/23/23 06:55 65 16 96 Nasal Cannula 02/23/23 03:48 36.8 C 64 16 110/66 94 Nasal Cannula O2 Flow Rate 02/23/23 14:16 02/23/23 11:27 02/23/23 10:22 02/23/23 07:47 02/23/23 07:32 2 02/23/23 07:12 02/23/23 06:55 1 02/23/23 03:48 1
[2023-02-23] MEDS: predniSONE 20 MG TAB PO SCH (20:54)
[2023-02-23] MEDS ORDERED: FLUTICASONE/VILANTEROL 100/25MCG 14 PUFFS/INHALER INH SCH (21:00)
[2023-02-24] MEDS: AZITHROMYCIN 250 MG TAB PO SCH (05:56)
[2023-02-24] MEDS: ENOXAPARIN INJ 40 MG/0.4 ML SYR SQ SCH (05:56)
[2023-02-24] MEDS: ALBUT/IPRATROP 3MG/0.5MG NEB 3 ML VIAL NEB SCH ×2 (07:27→11:07)
[2023-02-24] MEDS ORDERED: predniSONE 20 MG TAB PO SCH (09:00)
[2023-02-24 09:06] LABS: Basophils # (auto) 0.02 K/uL (0-0.2); Basophils % (auto) 0.2 %; Hematocrit (blood only) 39.9 % (37.0-47.0); Hemoglobin 13.9 g/dl (12.0-16.0); Immature Granulocytes # (auto) 0.06 K/uL (0.01-0.20); Immature Granulocytes % (auto) 0.5 %; Lymphocytes # (auto) 1.16 K/uL (1.2-3.4); Mean Corpuscular Hemoglobin 30.1 pg (25.0-34.0); Mean Corpuscular Hgb Conc 34.8 g/dL (32.0-36.0); Mean Corpuscular Volume 86.4 fL (80.0-100.0); Mean Platelet Volume 9.5 fL (9.4-12.4); Monocytes # (auto) 0.39 K/uL (0.11-0.59); Neutrophils # (auto) 11.26 K/uL (1.40-6.50); Neutrophils % (auto) 87.3 %; Platelet Count 274 K/uL (130-400); RDW Coefficient of Variation 13.1 % (11.5-14.5); RDW Standard Deviation 40.7 fL (36.4-46.3); Red Blood Count 4.62 M/uL (4.20-5.40); White Blood Count 12.89 K/ul (4.8-10.8)
[2023-02-24] MEDS: MAGNESIUM OXIDE 400 MG TAB PO SCH (09:19)
[2023-02-24] MEDS: LORATADINE 10 MG TAB PO SCH (09:19)
[2023-02-24] MEDS: predniSONE 20 MG TAB PO SCH (09:19)
[2023-02-24 09:38] LABS: BUN Creatinine Ratio 28.4 (10-20); Calcium 9.5 mg/dl (8.6-10.3); Est GFR (African American) 99.9 ml/min; Est GFR (Non-African American) 86.2 ml/min; Potassium 3.9 mmol/L (3.5-5.1)
--- NOTE | 2023-02-24 13:36 | Discharge Summary ---
Discharge Summary Date of Service February 24, 2023 Notes For Next Care Provider Please consider a referral to Pulmonology for further evaluation. Medication Changes From Visit Prednisone 40mg by mouth daily for an additional 4 days Azithromycin 500mg for 1 more day Tessalon Pearles by mouth as needed to help with cough Topamax discontinued as a possible trigger of this asthma flare Admission HPI Per Admitting Provider 62-year-old female past med significant for high triglycerides, asthma mild persistent, normal allergic rhinitis, GERD, constipation, chronic back pain presents with shortness of breath and cough. Patient states last 1 month she had cold symptoms on and off with cough bringing whitish-yellow phlegm. Last 2 days symptoms got worse and she was getting short of breath. Denies any fevers. No chest pains. In the ER upon ambulation she is requiring oxygen. Currently denies any headache. Initially had sore throat. No nausea. Appetite is okay. No dysphagia. No abdominal pain. Constipated. No blood in the stools or black stools. Normal bladder movements. Patient's states since she started the new medications seems to be Topamax about a month ago she started to develop this cold symptoms and is concerned whether current symptoms are side effects from the drug. Past medical history as mentioned above. Past surgical history colonoscopy, EGD with biopsy, ligation of oviducts, microdiscectomy at L5-S1. Family history father has asthma, bladder and prostate cancer, skin cancer. Mother had breast cancer at age 63, diabetes. Daughter has allergies. Sister has recurrent metastatic breast cancer at 61, sister cervical cancer, sister had breast cancer at age 45 BRCA negative. 2 sisters with COPD. Aunt has breast cancer. Social history . No smoking. Alcohol rarely. No drug use Admission Exam Per Admitting Provider General- Not in distress Head- atraumatic Eyes- PERRL. ENT- oropharynx clear Neck- supple, no JVD. Lungs- clear to auscultation , mild occasional wheezing Heart- regular rhythm; no murmur, no gallop. Abdomen- normal bowel sounds, soft, nontender, no distension. Extremities- no pretibial edema, no erythema seen. Neuro- alert, oriented x 3; PERRL,; no facial palsy; no dysarthria; non focal. Skin- warm & dry Principal Dx & Hospital Course #1 = Principal Diagnosis (1) Asthma exacerbation: 62yoF admitted with an asthma exacerbation. Asthma exacerbation Received IV Solu-Medrol and nebs in the ER as well as Rocephin and azithromycin Chest XRAY showed no acute disease Transitioned from IV Solumedrol to PO prednisone, discharged with an additional 4 days of treatment. Rocephin was discontinued. She received the equivalent of 2 doses of ernie thromycin 500mg while hospitalized. Discharged with 1 more dose. Tessalon as needed to help with her cough. Topamax was discontinued as a possible cause. Per up-to-date Topamax can cause 13 to 16% of upper respiratory infections. Discharge Exam General: Alert, oriented. No acute distress Skin: No noted rashes or bruises Psych: Appropriate mood and affect Neuro: No gross deficits HEENT: NC/AT CV: RRR, Normal s1, s2. No murmurs appreciated Resp: Decreased air movement bilaterally, no increased effort of breathing. Coughing occasionally during the exam. Abdomen: Soft, nontender, nondistended. No guarding. No organomegaly appreciated. Extremities: No edema in lower extremities bilaterally. Updated Medication List Medication Instructions Recorded Confirmed Type albuterol sulfate 2.5 mg/3 mL 2.5 mg inhalation Q4H PRN 02/25/19 02/21/23 History (0.083 %) solution for nebulization Shortness Of Breath Or Wheezing #2 mL albuterol sulfate 90 mcg/actuation 1 puffs inhalation Q4H #1 ea 02/25/19 02/21/23 History breath activated powder inhaler lysine 1,000 mg tablet 500 mg PO DAILY 02/25/19 02/21/23 History omega-3 acid ethyl esters 1 gram 1 cap PO DAILY 12/04/19 02/21/23 History capsule blue-green algae (bulk) (Spirulina 1 ea miscellaneous DAILY 02/21/23 02/21/23 History powder) fluticasone 100 mcg-salmeterol 50 1 inh inhalation HS 02/21/23 02/21/23 History mcg/dose blistr powdr for inhalation (Advair Diskus) loratadine 10 mg tablet 10 mg PO DAILY 02/21/23 02/21/23 History magnesium oxide 100 mg PO DAILY 02/21/23 02/21/23 History topiramate 25 mg tablet 50 mg PO QPM 02/21/23 02/21/23 History azithromycin 500 mg tablet 500 mg PO DAILY 1 day #1 tab 02/24/23 Rx benzonatate 200 mg capsule 200 mg PO TID #90 caps 02/24/23 Rx prednisone 20 mg tablet 40 mg PO DAILY 4 days #8 tabs 02/24/23 Rx Hospital Stay Data Consultations 02/22/23 02:49 ED Decision to Admit Stat Pending Results Patient Have Any Pending Studies at Discharge: No Discharge Instructions Given to Patient (Per Discharging Provider) You were admitted with an asthma exacerbation. We treated you with steroids and antibiotics. Your symptoms improved. We are discharging you home with the following medications to help your symptoms: -Take the prednisone 40mg by mouth daily for an additional 4 days -Take the azithromycin 500mg for 1 more day -Take the Tessalon by mouth as needed to help with your cough We also recommend that you follow up with your primary care physician as scheduled on March 01, 2023 for further evaluation. Your pcp can also refer you to a mortgage closer to ensure that your asthma remains under control. Total Time Total Time Spent Total Time Spent (In Minutes): >30 minutes
== END 2023-02-24 14:16 | disposition home or self-care (01) | DRG 203 ==
LOC: ED 22:20 → SUATTDRO 02-22 03:38 → INTOOBSV 02-22 03:38 → EDINP 02-22 03:38 → 2N 02-22 17:40